=== PATIENT | female | born 1950 | race Caucasian/White ===

== ENCOUNTER → 2017-12-16 | Outpatient (CLI) | payer OTHER | LOC: BMCIMAGING 14:46 | PROVIDERS: ATTEND Internal Medicine | DX: M89.38 Hypertrophy of bone, other site (principal) ==

== ENCOUNTER 2018-01-03 20:13 | Emergency (ER) | payer OTHER ==
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
[2018-01-03] MEDS ORDERED: NS 1,000 ML IV ONE (20:47)
[2018-01-03] MEDS ORDERED: HYDROmorphONE/DILAUDID 2 MG/ML INJ IVP ONE (20:48)
[2018-01-03] MEDS ORDERED: ONDANSETRON 4 MG/2 ML VIAL IVP ONE (20:48)
[2018-01-03 21:31] LABS: INR 0.95 (0.83-1.16); PROTIME(PATIENT) 12.9 SEC (12.0-15.0)
[2018-01-03 21:50] LABS: PLATELET COUNT 137 10^3/uL (150-400)
[2018-01-03 23:15] VITALS: BP 126/78
== END 2018-01-03 23:58 | disposition home or self-care (01) ==
DX: S06.0X0A Concussion without loss of consciousness, initial encounter (principal); R91.1 Solitary pulmonary nodule; W01.198A Fall on same level from slipping, tripping and stumbling with subsequent striking against other object, initial encounter
CPT/HCPCS: 96374; J1170; J2405

== ENCOUNTER → 2018-02-02 | Outpatient (CLI) | payer OTHER | LOC: FIMAGING 13:39 | PROVIDERS: ATTEND Internal Medicine | DX: R91.1 Solitary pulmonary nodule (principal); Z85.3 Personal history of malignant neoplasm of breast ==

== ENCOUNTER 2018-02-22 16:45 | Emergency (ER) | payer OTHER ==
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
[2018-02-22] MEDS ORDERED: ACETAMINOPHEN 325 MG TAB ONE (18:29)
[2018-02-22] MEDS ORDERED: ACETAMINOPHEN 325 MG TAB PO ONE (18:31)
[2018-02-22] MEDS ORDERED: ASPIRIN EC 325 MG TAB PO ONE (18:36)
[2018-02-22 18:48] VITALS: BP 126/75
== END 2018-02-22 18:48 | disposition home or self-care (01) ==
LOC: EDUNIT#
DX: S49.91XA Unspecified injury of right shoulder and upper arm, initial encounter (principal); S16.1XXA Strain of muscle, fascia and tendon at neck level, initial encounter; V49.50XA Passenger injured in collision with unspecified motor vehicles in traffic accident, initial encounter; Y92.410 Unspecified street and highway as the place of occurrence of the external cause

== ENCOUNTER → 2018-07-17 | Outpatient (CLI) | payer OTHER | LOC: FIMAGING 07:16 | PROVIDERS: ATTEND Internal Medicine | DX: G31.9 Degenerative disease of nervous system, unspecified (principal); R90.82 White matter disease, unspecified ==

== ENCOUNTER 2018-12-17 15:28 | Emergency (ER) | payer OTHER ==
--- NOTE | 2018-12-17 16:10 | EDPHY ---
H & P Stated Complaint: dental surgery wednesday, begain hearing music in R ear, Time Seen by Provider: 12/17/18 15:46 HPI/ROS: CHIEF COMPLAINT: Hearing music in right ear since last evening HISTORY OF PRESENT ILLNESS: 68-year-old female history of bipolar disorder , with no history of seizure disorder, arrives via private vehicle with . Patient had 4 teeth extracted 4 days ago. The patient reports hearing looping musical tracks since last evening. Not described as a radio transmission, instead described as looping tracks of jazz and "prydeinig music". Before coming to the emergency department she spoke with her oral surgeon at length who did not think it is related to oral surgery. She then spoke with her psychiatrist for 1 hr on the phone who did not think this is secondary to psychiatric pathology. She has spoke with the on-call provider for Dr. Waylon Main whop recommend she go to the ER for evaluation. She remains symptomatic. PRIMARY CARE PROVIDER: Dr Waylon Main REVIEW OF SYSTEMS: 10 systems reviewed and negative with the exception of the elements mentioned in the history of present illness PAST MEDICAL & SURGICAL HISTORY: bipolar disorder. Anxiety disorder. Cervical fusion. SOCIAL HISTORY: Lives with . Denies acute alcohol or drug use. PHYSICAL EXAM (Prior to examination, patient consented to physical exam, hands were washed and my usual and customary physical exam procedures followed) 1) GENERAL: Well-developed, well-nourished, alert and oriented. Appears to be in no acute distress. 2) HEAD: Normocephalic, atraumatic 3) HEENT: Pupils equal, round, reactive to light bilaterally. Sclera anicteric. Nasopharynx, oropharynx, clear, no lesions. Moist Mucous membranes. Bilateral ears clear, no foreign body, no evidence of acute infection. 4) NECK: Full range of motion, no meningeal signs. 5) LUNGS: Clear auscultation bilaterally, no wheezes, no rhonchi, no retractions. 6) HEART: Regular rate and rhythm, no murmur, no heave, no gallop. 7) ABDOMEN: No guarding, no rebound, no focal tenderness, negative McBurney's, negative Pitt's, negative Rovsing's, negative peritoneal sign, 8) MUSCULOSKELETAL: Moving all extremities, no focal areas of tenderness, no obvious trauma. No peripheral edema or discoloration. 9) BACK: No CVA tenderness, no midline vertebral tenderness, no fluctuance, no step-off, no obvious trauma, no visual or palpable abnormality. 10) SKIN: No rash, no petechiae. 11) Psychiatric: Patient is oriented X 3, there is no agitation. 12) NEURO: Awake, alert, and oriented to person, place and time. Answers questions appropriately. There were no obvious focal neurologic abnormalities. No cerebellar dysfunction. Normal steady gait. Upper and lower extremities bilaterally with strength 5 / 5, reflexes 2+. DIFFERENTIAL DIAGNOSIS: In no particular order including but not limited to auditory hallucination, temporal lobe seizure, malignancy - Personal History Current Tetanus Diphtheria and Acellular Pertussis (TDAP): Yes - Medical/Surgical History Hx Asthma: No Hx Chronic Respiratory Disease: No Hx Diabetes: No Hx Cardiac Disease: No Hx Renal Disease: No Hx Cirrhosis: No Hx Alcoholism: No Hx HIV/AIDS: No Hx Splenectomy or Spleen Trauma: No Other PMH: Chronic pain, concussions, unsteady gait, GALLBLADDER SURG, PANCRETITIS, BILAT MASSECTOMY , bipolar, anxiety. CERVICAL FUSION, HYPOTHYROIDISM, Hernia, Hysterectomy - Social History Smoking Status: Never smoked Constitutional: Initial Vital Signs Temperature (C) 36.8 C 12/17/18 15:32 Heart Rate 67 12/17/18 15:32 Respiratory Rate 16 12/17/18 15:32 Blood Pressure 91/57 L 12/17/18 15:32 O2 Sat (%) 93 12/17/18 15:32 O2 Delivery Mode Room Air Allergies/Adverse Reactions: cyclobenzaprine Allergy (Unknown, Unverified 01/19/18 15:58) tramadol Allergy (Unknown, Unverified 01/19/18 15:58) cyclobenzaprine HCl [From Flexeril] Allergy (Verified 03/24/16 23:06) Sulfa (Sulfonamide Antibiotics) Allergy (Verified 03/24/16 23:06) tramadol HCl [From Ultram] Allergy (Verified 03/24/16 23:06) Home Medications: Medication Instructions Recorded ALPRAZolam [Alprazolam Odt] 03/24/16 FLUoxetine [Prozac 10 MG (*)] 10 mg PO DAILY 03/24/16 Levothyroxine [Synthroid 25 mcg 03/24/16 (*)] Meclizine HCl [Meclizine HCl 12.5 03/24/16 mg (*)] Atorvastatin Calcium 02/22/18 Propranolol HCl 02/22/18 Acetaminophen 12/17/18 Ecotrin 12/17/18 Eszopiclone 12/17/18 Gabapentin 12/17/18 Medical Decision Making ED Course/Re-evaluation: 4:00 p.m.: I have evaluated the patient. She has a nonfocal exam. No history of trauma. No visible trauma. No hearing loss. No dizziness. No gait instability. Will obtain laboratory studies and MRI of the brain and consult with Neurology. Care of patient under supervision of secondary supervising physician Dr Wiseman with whom I discussed case. 4:36 p.m.: Phone consultation with Neurology Dr. Justo Rivera. He recommends that if the patient's MRI is normal, if she remains mentating clearly, that no further emergent intervention indicated at this time such as continuous EEG monitoring. In addition, he thought that seizure was less than likely as she is already on benzodiazepine and gabapentin for her bipolar and anxiety disorder. Today is Wednesday. He recommends the patient contact the office on Wednesday to be seen this week, assuming that her diagnostic studies are normal. I discussed this with the patient and and they are agreeable with this plan. They are fully aware that her diagnostic studies from the emergency department ultimately may be normal and a specific etiology may not be revealed today and they feel comfortable being discharged if studies are within normal limits. 5:40 p.m.: MRI of the brain interpreted staff radiologist as negative for malignancy, negative for ischemia or bleed. 5:48 p.m.: Re-evaluation of the patient. Discussed the negative imaging with the patient and her . She remains the nonfocal exam. They feel comfortable being discharged and following up with Dr. Rivera later this week. - Data Points Laboratory Results: Laboratory Results 12/17/18 16:15 12/17/18 16:15 12/17/18 12/17/18 12/17/18 16:15 16:15 16:15 WBC RBC Hgb POC Hgb 16.0 gm/dL gm/dL (12.6-16.3) Hct POC Hct 47 % % (38-47) MCV MCH MCHC RDW Plt Count MPV Neut % (Auto) Lymph % (Auto) Brown % (Auto) Eos % (Auto) Baso % (Auto) Nucleat RBC Rel Count Absolute Neuts (auto) Absolute Lymphs (auto) Absolute Monos (auto) Absolute Eos (auto) Absolute Basos (auto) Absolute Nucleated RBC Immature Gran % Immature Gran # POC Sodium 141 mEq/L mEq/L (135-145) Sodium 139 mEq/L mEq/L (135-145) POC Potassium 3.7 mEq/L mEq/L (3.3-5.0) Potassium 3.7 mEq/L mEq/L (3.5-5.2) POC Chloride 100 mEq/L mEq/L (97-110) Chloride 99 mEq/L mEq/L (97-110) Carbon Dioxide 29 mEq/l mEq/l (22-31) POC Total CO2 30 mEq/L mEq/L (22-31) Anion Gap 11 mEq/L mEq/L (6-14) POC BUN 17 mg/dL mg/dL (7-23) BUN 18 mg/dL mg/dL (7-23) Creatinine 1.0 mg/dL mg/dL (0.6-1.0) POC Creatinine 0.9 mg/dL mg/dL (0.6-1.0) Estimated GFR 55 Glucose 89 mg/dL mg/dL (70-100) POC Glucose 92 mg/dL mg/dL (70-100) Calcium 10.0 mg/dL mg/dL (8.5-10.4) TSH 2.390 uIU/mL uIU/mL (0.465-4.680) Ethyl Alcohol < 10 mg/dL mg/dL (0-10) 12/17/18 16:15 WBC 10.82 10^3/uL H 10^3/uL (3.80-9.50) RBC 4.95 10^6/uL 10^6/uL (4.18-5.33) Hgb 14.9 g/dL g/dL (12.6-16.3) POC Hgb Hct 46.4 % % (38.0-47.0) POC Hct MCV 93.7 fL fL (81.5-99.8) MCH 30.1 pg pg (27.9-34.1) MCHC 32.1 g/dL L g/dL (32.4-36.7) RDW 13.3 % % (11.5-15.2) Plt Count 171 10^3/uL 10^3/uL (150-400) MPV 10.0 fL fL (8.7-11.7) Neut % (Auto) 62.5 % % (39.3-74.2) Lymph % (Auto) 27.3 % % (15.0-45.0) Brown % (Auto) 8.7 % % (4.5-13.0) Eos % (Auto) 0.6 % % (0.6-7.6) Baso % (Auto) 0.4 % % (0.3-1.7) Nucleat RBC Rel Count 0.0 % % (0.0-0.2) Absolute Neuts (auto) 6.77 10^3/uL H 10^3/uL (1.70-6.50) Absolute Lymphs (auto) 2.95 10^3/uL 10^3/uL (1.00-3.00) Absolute Monos (auto) 0.94 10^3/uL H 10^3/uL (0.30-0.80) Absolute Eos (auto) 0.07 10^3/uL 10^3/uL (0.03-0.40) Absolute Basos (auto) 0.04 10^3/uL 10^3/uL (0.02-0.10) Absolute Nucleated RBC 0.00 10^3/uL 10^3/uL (0-0.01) Immature Gran % 0.5 % % (0.0-1.1) Immature Gran # 0.05 10^3/uL 10^3/uL (0.00-0.10) POC Sodium Sodium POC Potassium Potassium POC Chloride Chloride Carbon Dioxide POC Total CO2 Anion Gap POC BUN BUN Creatinine POC Creatinine Estimated GFR Glucose POC Glucose Calcium TSH Ethyl Alcohol Point of Care Test Results: Chemistry 12/17/18 16:15 POC Sodium 141 mEq/L mEq/L (135-145) POC Potassium 3.7 mEq/L mEq/L (3.3-5.0) POC Chloride 100 mEq/L mEq/L (97-110) POC Total CO2 30 mEq/L mEq/L (22-31) POC BUN 17 mg/dL mg/dL (7-23) POC Creatinine 0.9 mg/dL mg/dL (0.6-1.0) POC Glucose 92 mg/dL mg/dL (70-100) ISTAT H&H 12/17/18 16:15 POC Hgb 16.0 gm/dL gm/dL (12.6-16.3) POC Hct 47 % % (38-47) Departure - Departure Disposition: Home, Routine, Self-Care Clinical Impression: music sounds in ear Condition: Good Instructions: Tinnitus (ED) Additional Instructions: Seek immediate medical attention if you develop loss of consciousness, generalized seizure movements, headache, hearing loss, or any other symptoms that concern you. Referrals: Justo Rivera DO [Medical Doctor] - 12/19/18 (On Wednesday, contact Dr. Justo Rivera (neurologist) to be seen by him or any of his associates this week.)
[2018-12-17 16:34] LABS: PLATELET COUNT 171 10^3/uL (150-400)
[2018-12-17] MEDS ORDERED: GADOBUTROL 10 ML VIAL IVP ONE (16:35)
[2018-12-17 18:00] VITALS: BP 116/80
== END 2018-12-17 18:01 | disposition home or self-care (01) ==
DX: R44.0 Auditory hallucinations (principal)
CPT/HCPCS: 70553; 99285; A9585; 82435-PO; 82565-PO; 82947-PO; 84132-PO; 84295-PO; 84520-PO; 85014-ER; G0480